=== PATIENT | female | born 1955 | race Two or more races ===

== ENCOUNTER → 2018-05-08 | Emergency (ER) | payer OTHER ==
[~2018-05-08] VITALS: Ht 167.6 cm; Wt 69.9 kg
== END | disposition designated cancer center or children's hospital (05) ==
LOC: ER 01:03 → CPU-OBS 01:25
DX: I25.10 Atherosclerotic heart disease of native coronary artery without angina pectoris (principal); I21.29 ST elevation (STEMI) myocardial infarction involving other sites; I25.118 Atherosclerotic heart disease of native coronary artery with other forms of angina pectoris; I10 Essential (primary) hypertension; R07.89 Other chest pain; F17.210 Nicotine dependence, cigarettes, uncomplicated